=== PATIENT | male | born 1985 | race Caucasian/White ===

== ENCOUNTER 2016-09-08 06:53 | Emergency (ER) | payer BC, OTHER ==
--- NOTE | 2016-09-08 07:30 | EDM.PDOC ---
ED HPI Allergic Reaction - General Chief Complaint: Allergic Reaction Stated Complaint: MEDICATION REACTION Time Seen by Provider: 09/08/16 06:56 Source: Reports: Patient History Limitations: Reports: No limitations - History of Present Illness INITIAL COMMENTS - FREE TEXT/NARRATIVE: 31 years old w m came to the ed because of face tingling one day after he took 40mg instead of 20mg of prozac as recommended by Dr. Saleem. Pt's symptoms are improving. BP was 171/89 on arrival. Pt denies other medical issues at this time. Symptom Onset Date: 09/08/16 Symptom Onset Time: 03:00 Timing/Duration: Reports: Hour(s): Location, Skin: Reports: face Characteristics: Reports: other (face tingling) Quality: Reports: Other (face tingling) Severity: mild Known identified source: possible/maybe (Prozac) Place: home Exposure (offending agent or antigen): Reports: other meds (ASA,NSAID,ALEJANDRO/ARB) ( prozac) Sick Contact: no Associated symptoms: Reports: denies other symptoms Place of Occurrence: Reports: home Suspected Etiology: Reports: medication (dosage change of prozac) - Related Data Allergies/ADRs: Allergies Allergy/AdvReac Type Severity Reaction Status Date / Time bupropion HCl Allergy Anxiety Verified 09/08/16 07:02 [From Wellbutrin] diclofenac Allergy Swollen Verified 09/08/16 07:02 Tongue Home Meds: Home Meds Dasatinib [Sprycel] 1 tab PO BEDTIME 12/21/13 [History] Dextroamphetamine Sulfate [Dexedrine] 1 tab PO BID 12/21/13 [History] Triamterene/Hydrochlorothiazid [Triamterene-Hctz 50-25 mg Cap] 1 cap PO DAILY [History] Hydrocodone/Acetaminophen [Vicodin 5-300 mg Tablet] 1 each PO Q4HR PRN #4 tablet 10/08/15 [Rx] traMADol [Ultram] 50 mg PO Q6H PRN 10/08/15 [History] PARoxetine HCl [Paxil] 40 mg PO DAILY 09/08/16 [History] Past Medical History Cardiovascular History: Reports: Hypertension Respiratory History: Reports: Asthma, Pneumonia, recurrent Gastrointestinal History: Reports: Diverticulosis Musculoskeletal History: Reports: Other (see below) Other Musculoskeletal History: L ankle sprain 10/03/2015, Oncologic (Cancer) History: Reports: Leukemia, Other (see below) Other Oncologic History: hx CML since 2004 Dermatologic History: Reports: Other (see below) Other Dermatologic History: very sensitive to sun - Infectious Disease History Infectious Disease History: Reports: Chicken pox, Shingles - Past Surgical History HEENT Surgical History: Reports: Oral surgery Oncologic Surgical History: Reports: Bone marrow aspiration Social & Family History - Tobacco Use Smoking Status *Q: Current Every Day Smoker Years of Tobacco use: 13 Packs/Tins Daily: 1 Used Tobacco, but Quit: No Second Hand Smoke Exposure: Yes - Alcohol Use Days Per Week of Alcohol Use: 1 Number of Drinks Per Day: 1 Total Drinks Per Week: 1 - Recreational Drug Use Recreational Drug Use: Yes - Living Situation & Occupation Living situation: Reports: other (legally , works at [employer] Occupation: employed ED ROS ALLERGIC REACTION - Review of Systems Review Of Systems: See Below Constitutional: Reports: no symptoms HEENT: Reports: Other (face tingling, subsiding) Respiratory: Reports: No Symptoms Cardiovascular: Reports: No symptoms Endocrine: Reports: no symptoms GI/Abdominal: Reports: No symptoms : Reports: no symptoms Musculoskeletal: Reports: no symptoms Skin: Reports: no symptoms Neurological: Reports: Tingling (of face) Psychiatric: Reports: No symptoms Hematologic/Lymphatic: Reports: no symptoms Immunologic: Reports: no symptoms ED EXAM GENERAL NO PERIP PULSE - Physical Exam Exam: See Below Exam Limited By: No limitations General Appearance: alert, WD/WN, mild distress, obese (morbid) Eye Exam: bilateral eye: normal inspection Ears: normal external exam Nose: normal inspection, normal mucosa Throat/Mouth: Normal inspection, Normal oropharynx Head: atraumatic, normocephalic Neck: normal inspection, supple, non-tender, full range of motion Respiratory/Chest: no respiratory distress, lungs clear, normal breath sounds, no accessory muscle use Cardiovascular: normal peripheral pulses, regular rate, rhythm, no edema GI/Abdominal: normal bowel sounds, soft, non tender, no organomegaly (Male) Exam: Deferred Rectal (Males) Exam: Deferred Back Exam: normal inspection, full range of motion Extremities: normal inspection, normal range of motion, non-tender Neurological: alert, oriented, CN II-XII intact, normal cognition Psychiatric: depressed mood Skin Exam: Warm, Dry, Intact, Normal color, No rash Course - Vital Signs Text/Narrative:: 31 years old w m came to the ed because of face tingling one day after he took 40mg instead of 20mg of prozac as recommended by Dr. Saleem. Pt's symptoms are improving. BP was 171/89 on arrival. Pt denies other medical issues at this time. 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 Last Recorded V/S: Last Vital Signs Temp 36.6 C 09/08/16 08:11 Pulse 72 09/08/16 08:11 Resp 18 09/08/16 08:11 BP 142/66 H 09/08/16 08:11 Pulse Ox 98 09/08/16 07:40 - Orders/Labs/Meds Orders: Active Orders 24 hr Category Date Time Status Accu Check [Blood Glucose Check, Bedside] [RC] ONETIME Care 09/08/16 07:36 Active Labs: Laboratory Tests 09/08/16 Range/Units 07:40 POC Glucose 123 H (80-116) mg/dL Departure - Departure Time of Disposition: 07:22 Disposition: Home, Self-Care 01 Condition: good Clinical Impression: Medication adverse effect Referrals: Raul Saleem MD [Primary Care Provider] - Forms: ED Department Discharge, Return to Work/School Form Additional Instructions: Please take your original dose of Prozac and follow up with Dr. Saleem this Friday. Please come back to the ed if your symptoms get acutely worse. - My Orders Last 24 Hours: My Active Orders 09/08/16 07:36 Accu Check [Blood Glucose Check, Bedside] [RC] ONETIME - Assessment/Plan Last 24 Hours: My Active Orders 09/08/16 07:36 Accu Check [Blood Glucose Check, Bedside] [RC] ONETIME
[2016-09-08 08:12] VITALS: BP 142/66
== END 2016-09-08 08:20 | disposition home or self-care (01) ==
LOC: FB.ED 06:53
DX: R20.2 Paresthesia of skin (principal); T43.225A Adverse effect of selective serotonin reuptake inhibitors, initial encounter; I10 Essential (primary) hypertension; J45.909 Unspecified asthma, uncomplicated; F17.210 Nicotine dependence, cigarettes, uncomplicated; Z79.899 Other long term (current) drug therapy; Z98.890 Other specified postprocedural states; Z87.01 Personal history of pneumonia (recurrent); Z88.8 Allergy status to other drugs, medicaments and biological substances; Y92.009 Unspecified place in unspecified non-institutional (private) residence as the place of occurrence of the external cause
CPT/HCPCS: 82962; 99283

== ENCOUNTER 2017-09-29 05:11 | Emergency (ER) | payer BC, MEDICAID ==
[2017-09-29 05:30] VITALS: BP 163/111
--- NOTE | 2017-09-29 05:46 | EDM.PDOC ---
ED HPI GENERAL MEDICAL PROBLEM - General Chief Complaint: Laceration Stated Complaint: THUMB LAC Time Seen by Provider: 09/29/17 05:41 Source of Information: Reports: Patient History Limitations: Reports: No Limitations - History of Present Illness INITIAL COMMENTS - FREE TEXT/NARRATIVE: c/o L thumb lac unemployed, working at home on a project with a [employer] cut L thumb last Td 4y ago - Related Data Allergies Allergy/AdvReac Type Severity Reaction Status Date / Time bupropion HCl Allergy Anxiety Verified 09/08/16 07:02 [From Wellbutrin] diclofenac Allergy Swollen Verified 09/08/16 07:02 Tongue Home Meds: Home Meds Dasatinib [Sprycel] 1 tab PO BEDTIME 12/21/13 [History] Dextroamphetamine Sulfate [Dexedrine] 1 tab PO BID 12/21/13 [History] Triamterene/Hydrochlorothiazid [Triamterene-Hctz 50-25 mg Cap] 1 cap PO DAILY [History] PARoxetine HCl [Paxil] 40 mg PO DAILY 09/08/16 [History] Past Medical History - Past Health History Medical/Surgical History: Denies Medical/Surgical History Cardiovascular History: Reports: Hypertension Respiratory History: Reports: Asthma, Pneumonia, Recurrent Gastrointestinal History: Reports: Diverticulosis Musculoskeletal History: Reports: Other (See Below) Other Musculoskeletal History: chronic hip and knee pain Psychiatric History: Reports: Anxiety, Depression Other Psychiatric History: None Oncologic (Cancer) History: Reports: Leukemia Other Oncologic History: hx CML since 2004 Dermatologic History: Reports: Other (See Below) Other Dermatologic History: very sensitive to sun - Infectious Disease History Infectious Disease History: Reports: Chicken Pox, Shingles - Past Surgical History Head Surgeries/Procedures: Reports: None HEENT Surgical History: Reports: Oral Surgery Oncologic Surgical History: Reports: Bone Marrow Aspiration Social & Family History - Family History Family Medical History: Noncontributory - Tobacco Use Smoking Status *Q: Current Every Day Smoker Years of Tobacco use: 21 Packs/Tins Daily: 1 - Caffeine Use Caffeine Use: Reports: Coffee, Energy Drinks, Soda - Recreational Drug Use Recreational Drug Use: No - Living Situation & Occupation Living situation: Reports: Other Occupation: Employed ED ROS GENERAL - Review of Systems Review Of Systems: See Below Constitutional: Reports: No Symptoms HEENT: Reports: No Symptoms Respiratory: Reports: No Symptoms Cardiovascular: Reports: No Symptoms Endocrine: Reports: No Symptoms GI/Abdominal: Reports: No Symptoms : Reports: No Symptoms Musculoskeletal: Reports: No Symptoms Skin: Reports: Wound Neurological: Reports: No Symptoms Psychiatric: Reports: No Symptoms Hematologic/Lymphatic: Reports: No Symptoms Immunologic: Reports: No Symptoms ED EXAM, SKIN/RASH Exam: See Below Exam Limited By: No Limitations General Appearance: Alert, WD/WN, No Apparent Distress Respiratory/Chest: No Respiratory Distress, Lungs Clear Cardiovascular: Regular Rate, Rhythm Skin: Other (L thumb with 1.5 cm lac just into subc fat, max depth 3 mm, no f.b. , on lateral aspect of fingerpad, no involvement of joint, edges lying nicely together on their own, tincture of benzoin and steri strips applied by nursing) Course - Vital Signs Last Recorded V/S: Last Vital Signs Temp 36.9 C 09/29/17 05:25 Pulse 103 H 09/29/17 05:25 Resp 18 09/29/17 05:25 BP 163/111 H 09/29/17 05:25 Pulse Ox 98 09/29/17 05:25 Departure - Departure Time of Disposition: 05:43 Disposition: Home, Self-Care 01 Condition: Good Clinical Impression: Laceration of left thumb - Discharge Information Instructions: Sterile Tape Wound Care Referrals: Raul Saleem MD [Primary Care Provider] - Additional Instructions: Keep thumb clean and dry and covered with a dressing for 5 days. Change dressing daily. See a physician the same day for any increase in redness, swelling, pain, warmth , fever or drainage. It will take 1 year to heal and leave a barely visible thin scar.
== END 2017-09-29 05:50 | disposition home or self-care (01) ==
LOC: FB.ED 05:11
DX: S61.012A Laceration without foreign body of left thumb without damage to nail, initial encounter (principal); I10 Essential (primary) hypertension; F41.9 Anxiety disorder, unspecified; F32.9 Major depressive disorder, single episode, unspecified; F17.210 Nicotine dependence, cigarettes, uncomplicated; Z88.8 Allergy status to other drugs, medicaments and biological substances; Z88.6 Allergy status to analgesic agent; Z79.899 Other long term (current) drug therapy; W27.0XXA Contact with workbench tool, initial encounter; Y92.009 Unspecified place in unspecified non-institutional (private) residence as the place of occurrence of the external cause
CPT/HCPCS: 99283

== ENCOUNTER 2018-11-02 19:06 | Emergency (ER) | payer SELFPAY ==
[2018-11-02 19:21] VITALS: BP 154/112
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
== END 2018-11-02 20:15 | disposition home or self-care (01) ==
LOC: FB.ED 19:06
DX: C92.10 Chronic myeloid leukemia, BCR/ABL-positive, not having achieved remission (principal); E86.0 Dehydration; I10 Essential (primary) hypertension; E66.9 Obesity, unspecified; F17.210 Nicotine dependence, cigarettes, uncomplicated; Z98.890 Other specified postprocedural states
CPT/HCPCS: 99281

== ENCOUNTER 2018-12-15 19:38 | Emergency (ER) | payer OTHER ==
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
[2018-12-15] MEDS ORDERED: Ketorolac 60 MG/2 ML SDV IM ONE (20:06)
[2018-12-15] MEDS ORDERED: Iopamidol 755 Mg/ML 100 ML Bottle IV ONE (20:27)
[2018-12-15 21:00] VITALS: BP 119/67; PULSE 84
== END 2018-12-15 22:00 | disposition home or self-care (01) ==
LOC: FB.ED 19:38
DX: R07.81 Pleurodynia (principal); I10 Essential (primary) hypertension; C92.10 Chronic myeloid leukemia, BCR/ABL-positive, not having achieved remission; E66.9 Obesity, unspecified; Z98.890 Other specified postprocedural states; Z88.8 Allergy status to other drugs, medicaments and biological substances
CPT/HCPCS: 36415; 71275; 80053; 85027; 87081; 87880; 96372; 99285; J1885; Q9967; 99283

== ENCOUNTER 2019-12-03 22:26 | Emergency (ER) | payer SELFPAY ==
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
[2019-12-03] MEDS ORDERED: Sodium Chloride 0.9% 10 ML Syringe FLUSH PRN (22:50)
[2019-12-03] MEDS ORDERED: LORazepam 2 MG/ML SDV IVPUSH ONE (22:51)
[2019-12-03] MEDS ORDERED: Sodium Chloride 0.9% 500 ML IV ONE (22:51)
[2019-12-03] MEDS ORDERED: Sodium Chloride 0.9% 1,000 ML IV SCH (23:00)
[2019-12-04] MEDS ORDERED: Magnesium Oxide 400 MG Tab PO ONE (00:04)
[2019-12-04] MEDS ORDERED: Potassium Chloride 10% 20 MEQ/15 ML Soln 15 ML UD Cup PO ONE (00:04)
[2019-12-04 01:05] VITALS: BP 141/95; PULSE 78
--- NOTE | 2019-12-06 11:09 | CR ---
INDICATION: Shortness of breath. CHEST, ONE VIEW: Portable AP upright view of the chest 12/03/2019 was compared with 04/17/10 and again revealed the heart to be normal in size and shape. Mediastinum was unremarkable. Overlying EKG leads are noted. Evidence of exogenous obesity is noted. The lungs appear to be slightly hyperaerated. A definite active infiltrate or effusion was not identified. However, there is minimal bronchial wall cuffing at the lung bases, which may be on the basis of active peribronchial disease, and should be correlated clinically. MTDD
== END 2019-12-04 00:37 ==
LOC: FB.ED 22:26
DX: E87.6 Hypokalemia (principal); E83.42 Hypomagnesemia; R06.4 Hyperventilation; R42 Dizziness and giddiness; I10 Essential (primary) hypertension; J45.909 Unspecified asthma, uncomplicated; E66.9 Obesity, unspecified; Z68.38 Body mass index [BMI] 38.0-38.9, adult; Z88.6 Allergy status to analgesic agent; Z88.8 Allergy status to other drugs, medicaments and biological substances
CPT/HCPCS: 36415; 71045; 80053; 83735; 84484; 85025; 85379; 93005; 96361; 96374; 99285; A9270; J2060; J7030; J7040

== ENCOUNTER 2020-08-17 03:13 | Emergency (ER) | payer SELFPAY ==
[2020-08-17] MEDS ORDERED: Acetaminophen/Codeine 300-30 MG Tab PO ONE (03:14)
[2020-08-17] MEDS ORDERED: Amoxicillin 500 MG Cap PO ONE (03:14)
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
[2020-08-17 05:14] VITALS: BP 154/90; PULSE 98
== END 2020-08-17 03:45 | disposition home or self-care (01) ==
LOC: FB.ED 03:13
DX: K04.7 Periapical abscess without sinus (principal); K02.9 Dental caries, unspecified; I10 Essential (primary) hypertension; J45.909 Unspecified asthma, uncomplicated; E66.9 Obesity, unspecified; Z68.34 Body mass index [BMI] 34.0-34.9, adult; Z88.8 Allergy status to other drugs, medicaments and biological substances; Z88.6 Allergy status to analgesic agent; Z79.899 Other long term (current) drug therapy
CPT/HCPCS: 99282; A9270-GY

== ENCOUNTER 2020-09-08 10:53 | Emergency (ER) | payer SELFPAY ==
[2020-09-08] MEDS ORDERED: Ketorolac 60 MG/2 ML SDV IM ONE (12:13)
[2020-09-08] MEDS ORDERED: Lidocaine 2% Viscous Solution 15 ML Cup PO ONE (12:14)
[2020-09-08] MEDS ORDERED: Ketorolac 30 MG/ML SDV IM ONE (12:45)
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
[2020-09-08 15:17] VITALS: BP 156/112; PULSE 91
== END 2020-09-08 13:15 ==
LOC: FB.ED 10:53
DX: K08.89 Other specified disorders of teeth and supporting structures (principal); C92.10 Chronic myeloid leukemia, BCR/ABL-positive, not having achieved remission; I10 Essential (primary) hypertension; J45.909 Unspecified asthma, uncomplicated; E66.9 Obesity, unspecified; Z68.41 Body mass index [BMI] 40.0-44.9, adult; Z88.8 Allergy status to other drugs, medicaments and biological substances; Z88.6 Allergy status to analgesic agent
CPT/HCPCS: 36415; 80048; 85025; 96372; 99283; A9270; J1885

== ENCOUNTER 2021-03-25 23:33 | Emergency (ER) | payer MEDICAID ==
[2021-03-25] MEDS ORDERED: Azithromycin 250 MG Tab PO ONE (23:34)
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
[2021-03-26 01:28] VITALS: BP 144/81; PULSE 88
== END 2021-03-26 01:10 | disposition home or self-care (01) ==
LOC: FB.ED 23:33
DX: R09.1 Pleurisy (principal); J45.909 Unspecified asthma, uncomplicated; E66.9 Obesity, unspecified; Z68.41 Body mass index [BMI] 40.0-44.9, adult; Z72.0 Tobacco use; Z88.8 Allergy status to other drugs, medicaments and biological substances; Z79.899 Other long term (current) drug therapy; Z20.822 Contact with and (suspected) exposure to COVID-19
CPT/HCPCS: 87635; 99285; A9270; U0002

== ENCOUNTER 2021-08-06 22:43 | Emergency (ER) | payer BC, MEDICAID ==
[2021-08-07] MEDS: Azithromycin 500 MG Tab PO ONE
[2021-08-07 04:32] VITALS: BP 171/110; PULSE 102
== END 2021-08-07 00:10 | disposition home or self-care (01) ==
LOC: FB.ED 22:43
DX: S00.81XA Abrasion of other part of head, initial encounter (principal); M10.9 Gout, unspecified; E66.9 Obesity, unspecified; Z79.899 Other long term (current) drug therapy; Z88.8 Allergy status to other drugs, medicaments and biological substances; Z68.42 Body mass index [BMI] 45.0-49.9, adult; W55.03XA Scratched by cat, initial encounter
CPT/HCPCS: 99283; A9270-GY

== ENCOUNTER 2021-10-25 20:48 | Emergency (ER) | payer BC ==
[2021-10-25] MEDS ORDERED: Acetaminophen/HYDROcodone 325-5 MG Tab PO ONE (21:03)
[2021-10-25] MEDS ORDERED: Ketorolac 30 MG/ML SDV IM ONE (21:03)
[2021-10-25] MEDS ORDERED: Cyclobenzaprine 10 MG Tab PO STA (21:13)
[2021-10-25] MEDS ORDERED: Lidocaine 4% 1 each Patch TOP PRN (21:42)
[2021-10-25] MEDS ORDERED: cloNIDine 0.1 MG Tab PO STA (22:01)
[2021-10-25] MEDS ORDERED: hydrALAZINE 20 MG/ML SDV IM STA (22:01)
[2021-10-25 22:37] VITALS: BP 152/97; PULSE 80
== END 2021-10-25 22:40 | disposition home or self-care (01) ==
LOC: FB.ED 20:48
DX: M25.572 Pain in left ankle and joints of left foot (principal); I10 Essential (primary) hypertension; F17.210 Nicotine dependence, cigarettes, uncomplicated; M10.9 Gout, unspecified; E66.9 Obesity, unspecified; Z88.8 Allergy status to other drugs, medicaments and biological substances; Z68.41 Body mass index [BMI] 40.0-44.9, adult
CPT/HCPCS: 96372; 99283; A9270; J0360; J1885

== ENCOUNTER 2022-02-19 19:41 | Emergency (ER) | payer BC ==
[2022-02-19] MEDS ORDERED: amLODIPine 10 MG Tab PO ONE (19:58)
[2022-02-19] MEDS ORDERED: amLODIPine 10 MG Tab ONE (19:59)
[2022-02-19] MEDS ORDERED: Metoprolol Tartrate 50 MG Tab PO ONE (20:26)
[2022-02-19 22:29] VITALS: BP 145/94; PULSE 76
== END 2022-02-19 21:43 | disposition home or self-care (01) ==
LOC: FB.ED 19:41
DX: I10 Essential (primary) hypertension (principal); L03.90 Cellulitis, unspecified; E66.9 Obesity, unspecified; Z68.41 Body mass index [BMI] 40.0-44.9, adult; Z88.8 Allergy status to other drugs, medicaments and biological substances; Z79.899 Other long term (current) drug therapy
CPT/HCPCS: 99283; A9270

== ENCOUNTER 2022-06-01 21:37 | Emergency (ER) | payer BC ==
[2022-06-01] MEDS ORDERED: Amoxicillin 500 MG Cap PO ONE (21:38)
[2022-06-01] MEDS ORDERED: Acetaminophen/Codeine 300-30 MG Tab PO ONE (21:38)
[2022-06-02 03:49] VITALS: BP 168/98; PULSE 84
== END 2022-06-01 22:27 | disposition home or self-care (01) ==
LOC: FB.ED 21:37
DX: K08.89 Other specified disorders of teeth and supporting structures (principal); I10 Essential (primary) hypertension; E66.9 Obesity, unspecified; Z68.28 Body mass index [BMI] 28.0-28.9, adult; Z88.6 Allergy status to analgesic agent; Z88.8 Allergy status to other drugs, medicaments and biological substances; Z79.899 Other long term (current) drug therapy
CPT/HCPCS: 99282; A9270-GY